=== PATIENT | female | born 1970 | race American Indian/Alaskan Native ===

== ENCOUNTER 2021-04-13 13:55 | Emergency (ER) | payer SELFPAY ==
[2021-04-13 14:12] VITALS: BP 134/79
[2021-04-13] MEDS ORDERED: IPRATROPIUM 0.02% NEBU 2.5 ML IH ONE (14:12)
[2021-04-13] MEDS ORDERED: MAGNESIUM SULFATE 2 GM/50 ML BAG IV ONE (14:12)
[2021-04-13] MEDS ORDERED: ALBUTEROL 2.5 MG/3 ML NEBU IH ONE (14:12)
[2021-04-13] MEDS ORDERED: methylPREDNISolone Sod Succinate 125 MG/2 ML INJ IV ONE (14:12)
--- NOTE | 2021-04-13 14:15 | Event Note ---
ED Screening Note Date of service: 04/13/21 Time: 14:13 ED Screening Note: 50-year-old female patient with history of asthma presents to emergency department with complaints of wheezing and shortness of breath starting this morning. States symptoms are consistent with prior asthma exacerbations. Patient has been hospitalized for asthma exacerbation on previous occasions. She has never required mechanical ventilation. Tachypneic in triage. General: Awake, appropriately interactive. Moderate respiratory distress. Neck: Supple. Full range of motion intact. Cardiovascular: Normal peripheral perfusion. Pulmonary: Moderate respiratory distress. Diffuse expiratory wheezing with diminished air movement throughout. Skin: No apparent rashes or lesions. Neurological: No facial asymmetry. Speech is clear. Follows commands. Patient is alert and oriented. Musculoskeletal: Moves all four extremities spontaneously with normal range of motion. Psych: Cooperative. Appropriate mood and affect. Ordered breathing treatment, steroids, peripheral IV, teletypesetter monitor, SpO2 monitor. Respiratory therapist aware. Attending emergency physician aware. I have greeted and performed a focused rapid initial assessment of this patient. A comprehensive ED assessment and evaluation of the patient, analysis of all test results, and completion of the medical decision-making process will be conducted by additional ED providers. This initial assessment/diagnostic orders/clinical plan/treatment(s) is/are subject to change based on patients health status, clinical progression and re-assessment. Further treatment and workup at subsequent clinical provider's discretion. Patient/guardian urged not to elope from the ED as their condition may be serious if not clinically assessed and managed.
--- NOTE | 2021-04-13 14:42 | Emergency Department Report ---
HPI - General Chief Complaint: Dyspnea/Respdistress Time Seen by Provider: 04/13/21 14:18 - HPI HPI: Room 38 The patient is a 50-year-old female presenting with a chief complaint of asthma exacerbation. The patient states that she is visiting from out of town and ran out of her albuterol inhaler. The patient states at approximately 03: 00 this morning she developed shortness of breath secondary to her asthma. Patient states her presentations feels just like her asthma. Patient denies history of fever. 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 - Family History Family history: no significant - Social History Smoking Status: Current Every Day Smoker (1/2 pack/day) Substance Use Type: None ( denies illicit drug use) - Medications Home Medications: Home Medications Medication Instructions Recorded Confirmed Last Taken Type Albuterol Mdi (or & Nicu Only) 2 puff IH QID PRN #8.5 gram 04/13/21 Unknown Rx [ProAir HFA Inhaler] Budesonide/Formoterol Fumarate 2 inhalation IH BID #1 hfa.aer.ad 04/13/21 Unknown Rx [Symbicort 80-4.5 Mcg Inhaler] Prednisone [predniSONE 10 mg 10 mg PO .TAPER #1 tab.ds.pk 04/13/21 Unknown Rx (6-Day Pack, 21 Tabs)] ED Review of Systems ROS: Stated complaint: ASTHMA Other details as noted in HPI Constitutional: denies: fever Eyes: denies: eye pain ENT: denies: throat pain Respiratory: cough, shortness of breath, wheezing Cardiovascular: denies: chest pain Endocrine: no symptoms reported Gastrointestinal: denies: abdominal pain Genitourinary: denies: dysuria Musculoskeletal: denies: back pain Neurological: denies: headache Physical Exam - Physical Exam Vital Signs: Vital Signs 04/13/21 14:11 Temperature 98.3 F Pulse Rate 94 H Respiratory 20 Rate Blood Pressure 134/79 O2 Sat by Pulse 100 Oximetry Physical Exam: GENERAL: The patient is well-developed well-nourished female lying on stretcher not appearing to be in acute distress. [] HEENT: Normocephalic. Atraumatic. Extraocular motions are intact. Patient has moist mucous membranes. NECK: Supple. Trachea midline CHEST/LUNGS: Clear to auscultation. There is no respiratory distress noted. HEART/CARDIOVASCULAR: Regular. There is no tachycardia. There is no gallop rub or murmur. ABDOMEN: Abdomen is soft, nontender. Patient has normal bowel sounds. There is no abdominal distention. SKIN: There is no rash. There is no edema. There is no diaphoresis. NEURO: The patient is awake, alert, and oriented. The patient is cooperative. The patient has no focal neurologic deficits. The patient has normal speech. GCS 15 MUSCULOSKELETAL: There is no evidence of acute injury. ED Course Vital Signs 04/13/21 14:11 Temperature 98.3 F Pulse Rate 94 H Respiratory 20 Rate Blood Pressure 134/79 O2 Sat by Pulse 100 Oximetry - Reevaluation(s) Reevaluation #1: 04/13/21 16:02 Patient states she feels much improved ED Medical Decision Making - Differential Diagnosis Asthma exacerbation Critical care attestation.: If time is entered above; I have spent that time in minutes in the direct care of this critically ill patient, excluding procedure time. ED Disposition Clinical Impression: Acute asthma exacerbation Disposition: DC-01 TO HOME OR SELFCARE Is pt being admited?: No Does the pt Need Aspirin: No Condition: Stable Instructions: Asthma, Adult, [id number] Additional Instructions: Return to the emergency department should you develop worsening symptoms, inability to tolerate food or liquids, high fever or any other concerns Prescriptions: Prednisone [predniSONE 10 mg (6-Day Pack, 21 Tabs)] 10 mg PO .TAPER #1 tab.ds.pk Albuterol Mdi (or & Nicu Only) [ProAir HFA Inhaler] 2 puff IH QID PRN #8.5 gram PRN Reason: Shortness Of Breath Budesonide/Formoterol Fumarate [Symbicort 80-4.5 Mcg Inhaler] 2 inhalation IH BID #1 hfa.aer.ad Referrals: PRIMARY CARE [Primary Care Provider] - 3-5 Days [facility] [Provider Group] - 3-5 Days Time of Disposition: 16:06
== END 2021-04-13 17:40 | disposition home or self-care (01) ==
LOC: ED 13:55
DX: J45.901 Unspecified asthma with (acute) exacerbation (principal); F17.200 Nicotine dependence, unspecified, uncomplicated; Z79.899 Other long term (current) drug therapy; Z98.890 Other specified postprocedural states
CPT/HCPCS: 94640; 96365; 96375; 99283; J2930; J3475; 94644

== ENCOUNTER 2021-04-26 10:32 | Emergency (ER) | payer SELFPAY ==
[2021-04-26] MEDS ORDERED: dexAMETHasone 20 MG/5 ML VIAL IM ONE (11:59)
[2021-04-26] MEDS ORDERED: ALBUTEROL 2.5 MG/3 ML NEBU IH ONE ×2 (11:59→12:58)
[2021-04-26] MEDS ORDERED: IPRATROPIUM 0.02% NEBU 2.5 ML IH ONE ×2 (11:59→12:58)
[2021-04-26] MEDS ORDERED: MAGNESIUM SULFATE 2 GM/50 ML BAG IV ONE (13:10)
--- NOTE | 2021-04-26 13:29 | XRay Report ---
XR CHEST 2 VIEWS INDICATION / CLINICAL INFORMATION: Cough COMPARISON: None available. FINDINGS: SUPPORT DEVICES: None. HEART / MEDIASTINUM: No significant abnormality. LUNGS / PLEURA: Lungs are clear. Costophrenic sulci are sharp. No pneumothorax. ADDITIONAL FINDINGS: No significant additional findings. IMPRESSION: 1. No acute findings. Signer Name: Perry Howell MD Signed: 04/26/2021 12:35 PM Workstation Name: [email or web address]
--- NOTE | 2021-04-26 14:11 | Emergency Department Report ---
ED Asthma HPI - General Chief Complaint: Dyspnea/Respdistress Stated Complaint: ASTHMA/SOB Time Seen by Provider: 04/26/21 11:58 Source: patient Mode of arrival: Ambulatory Limitations: No Limitations - History of Present Illness Initial Comments: Patient is a 50-year-old female presents emergency room with complaints of an asthma exacerbation that began earlier today. She has associated wheezing, shortness of breath, chest tightness, coughing. She states her symptoms just began this morning. She states that she uses an albuterol inhaler and takes 20 mg of prednisone daily. She denies any fever, vomiting, diarrhea, leg swelling. She has never had to be intubated. No past medical history. No allergies to medications. She is a smoker. - Related Data Previous Rx's Medication Instructions Recorded Last Taken Type Albuterol Mdi (or & Nicu Only) 2 puff IH QID PRN #8.5 gram 04/13/21 Unknown Rx [ProAir HFA Inhaler] Budesonide/Formoterol Fumarate 2 inhalation IH BID #1 hfa.aer.ad 04/13/21 Unknown Rx [Symbicort 80-4.5 Mcg Inhaler] Prednisone [predniSONE 10 mg 10 mg PO .TAPER #1 tab.ds.pk 04/13/21 Unknown Rx (6-Day Pack, 21 Tabs)] Albuterol Sulfate [Proventil Hfa] 1 puff IH TID PRN #1 hfa.aer.ad 04/26/21 Unknown Rx predniSONE [Deltasone] 20 mg PO QDAY #20 tab 04/26/21 Unknown Rx Allergies Allergy/AdvReac Type Severity Reaction Status Date / Time shellfish derived Allergy Swelling Verified 04/26/21 10:37 ED Review of Systems ROS: Stated complaint: ASTHMA/SOB Other details as noted in HPI Comment: All other systems reviewed and negative ED Past Medical Hx - Past Medical History Hx Asthma: Yes Additional medical history: eczema - Surgical History 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 - Social History Smoking Status: Current Every Day Smoker (1/2 pack/day) Substance Use Type: None ( denies illicit drug use) - Medications Home Medications: Home Medications Medication Instructions Recorded Confirmed Last Taken Type Albuterol Mdi (or & Nicu Only) 2 puff IH QID PRN #8.5 gram 04/13/21 Unknown Rx [ProAir HFA Inhaler] Budesonide/Formoterol Fumarate 2 inhalation IH BID #1 hfa.aer.ad 04/13/21 Unknown Rx [Symbicort 80-4.5 Mcg Inhaler] Prednisone [predniSONE 10 mg 10 mg PO .TAPER #1 tab.ds.pk 04/13/21 Unknown Rx (6-Day Pack, 21 Tabs)] Albuterol Sulfate [Proventil Hfa] 1 puff IH TID PRN #1 hfa.aer.ad 04/26/21 Unknown Rx predniSONE [Deltasone] 20 mg PO QDAY #20 tab 04/26/21 Unknown Rx ED Physical Exam - General Limitations: No Limitations General appearance: alert - Head Head exam: Present: atraumatic, normocephalic - Eye Eye exam: Present: normal appearance - ENT ENT exam: Present: mucous membranes moist - Respiratory Respiratory exam: Present: respiratory distress (moderate), wheezes, decreased breath sounds, prolonged expiratory. Absent: rales, rhonchi, stridor - Cardiovascular Cardiovascular Exam: Present: regular rate, normal rhythm, normal heart sounds. Absent: systolic murmur, diastolic murmur, rubs, gallop - Neurological Exam Neurological exam: Present: alert, oriented X3 - Psychiatric Psychiatric exam: Present: normal affect, normal mood - Skin Skin exam: Present: warm, dry, intact ED Course Vital Signs 04/26/21 04/26/21 10:39 14:29 Temperature 97.9 F Pulse Rate 98 H 64 Respiratory 22 16 Rate Blood Pressure 148/93 Blood Pressure 149/77 [Left] O2 Sat by Pulse 98 99 Oximetry ED Medical Decision Making - Lab Data Vital Signs 04/26/21 04/26/21 10:39 14:29 Temperature 97.9 F Pulse Rate 98 H 64 Respiratory 22 16 Rate Blood Pressure 148/93 Blood Pressure 149/77 [Left] O2 Sat by Pulse 98 99 Oximetry - Radiology Data Radiology results: report reviewed Ordering Physician: HUBERT GONZALEZ Date of Service: 04/26/21 Procedure(s): XR chest 1V ap Accession Number(s): [id number] cc: HUBERT GONZALEZ Fluoro Time In Minutes: XR CHEST 2 VIEWS INDICATION / CLINICAL INFORMATION: Cough COMPARISON: None available. FINDINGS: SUPPORT DEVICES: None. HEART / MEDIASTINUM: No significant abnormality. LUNGS / PLEURA: Lungs are clear. Costophrenic sulci are sharp. No pneumothorax. ADDITIONAL FINDINGS: No significant additional findings. IMPRESSION: 1. No acute findings. Signer Name: Perry Howell MD Signed: 04/26/2021 12:35 PM Workstation Name: [email or web address] Transcribed By: Dictated By: Perry Howell MD Electronically Authenticated By: Perry Howell MD Signed Date/Time: 04/26/21 1235 DD/ 1234 TD/TT: - Medical Decision Making Patient is a 50-year-old female presents emergency room with complaints of an asthma exacerbation that began earlier today. She has associated wheezing, shortness of breath, chest tightness, coughing. She states her symptoms just began this morning. She states that she uses an albuterol inhaler and takes 20 mg of prednisone daily. She denies any fever, vomiting, diarrhea, leg swelling. She has never had to be intubated. No past medical history. No allergies to medications. She is a smoker. Vitals are stable. On exam: Patient has significant wheezing throughout, prolonged expiratory phase, moderate respiratory distress. CXR: 1. No acute findings. Patient given continuous neb treatment, dexamethasone IM, magnesium. On reexamination wheezing has completely resolved and patient is feeling much better and ready to go home. Advised patient Please take medication as prescribed. Please stop smoking. Follow-up with your primary care doctor. Return to emergency room for any new or symptoms. Critical care attestation.: If time is entered above; I have spent that time in minutes in the direct care of this critically ill patient, excluding procedure time. ED Disposition Clinical Impression: Tobacco use Asthma exacerbation Qualifiers: Asthma severity: unspecified severity Asthma persistence: unspecified Qualified Code(s): J45.901 - Unspecified asthma with (acute) exacerbation Disposition: DC-01 TO HOME OR SELFCARE Is pt being admited?: No Does the pt Need Aspirin: No Condition: Stable Instructions: Asthma, Adult, Steps to Quit Smoking Additional Instructions: Please take medication as prescribed. Please stop smoking. Follow-up with your primary care doctor. Return to emergency room for any new or symptoms. Prescriptions: predniSONE [Deltasone] 20 mg PO QDAY #20 tab Albuterol Sulfate [Proventil Hfa] 1 puff IH TID PRN #1 hfa.aer.ad PRN Reason: shortness of breath/wheezing Referrals: CECILIO MATUTE MD [Staff Physician] - 3-5 Days [facility] [Provider Group] - 3-5 Days Time of Disposition: 14:10 Print Language: BENGALI
[2021-04-26 14:30] VITALS: BP 149/77
== END 2021-04-26 14:50 | disposition home or self-care (01) ==
LOC: ED 10:32
DX: J45.901 Unspecified asthma with (acute) exacerbation (principal)
CPT/HCPCS: 71045; 96365; 96372; 99283; J1100; J3475